=== PATIENT | female | born 1970 | race Caucasian/White ===

== ENCOUNTER 2023-06-20 02:00 | Emergency (ER) | payer SELFPAY ==
[~2023-06-20] VITALS: Ht 167.6 cm; Wt 90.7 kg
== END 2023-06-20 03:17 | disposition left against medical advice (07) ==
LOC: ED 02:00
DX: T40.5X1A Poisoning by cocaine, accidental (unintentional), initial encounter (principal); Z91.040 Latex allergy status; Z98.51 Tubal ligation status; F17.210 Nicotine dependence, cigarettes, uncomplicated; Y92.89 Other specified places as the place of occurrence of the external cause